=== PATIENT | male | born 1945 | race Caucasian/White ===

== ENCOUNTER 2016-10-01 16:37 | Observation (INO) | payer MEDICARE, OTHER ==
--- NOTE | ~2016-10-01 | EKG ---
PATIENT: LESLIE IRVIN UNIT #: [id number] Ventricular Rate: 53 BPM Atrial Rate: 53 BPM P-R Interval: 180 ms QRS Duration: 100 ms Q-T Interval: 424 ms QTC Calculation(Bezet): 397 ms P [place]: 36 degrees Calculated R [place]: -37 degrees Diagnosis Line: Sinus bradycardia Diagnosis Line: Left axis deviation Diagnosis Line: Abnormal ECG Diagnosis Line: No previous ECGs available Diagnosis Line: Confirmed by DELIA MADRID MD ([id number]) on 10/02/2016 Diagnosis Line: 11:09:47 PM INTERPRETING MD: MERCY CRAWFORD
--- NOTE | ~2016-10-01 | DS ---
Unit #: [id number] #: [id number] Patient: LESLIE IRVIN [id number] [address] [place], [place] [address] [id number] MR#: [id number] NAME: LESLIE IRVIN. ROOM: 576 Age: 71 Sex: M Admission Date: 10/01/2016 : 1945 Discharge Date: 10/03/2016 Attending Physician: Landon Hua M.D. Referring Physician: Landon Hua M.D. Primary Care Physician: Tremaine Acosta M.D. DISCHARGE SUMMARY DISCHARGE DIAGNOSES 1. Unstable angina. 2. Coronary artery disease, status post cardiac catheterization on 10/02/2016 at [facility] per Dr. Hua, which revealed left main normal. Proximal third of left anterior descending with mild calcification involving origin of the first diagonal branch. At the site of the origin of the first diagonal branch there was a 50% stenosis. At the first diagonal branch there was a 75% stenosis. Distal half of left anterior descending normal. First diagonal branch of left anterior descending normal. All septal perforators normal. Large anterior marginal branch of left circumflex have a long segment of stenosis with maximum severity of 95% to 99%. Distal vessel normal. Right coronary artery normal. Fractional flow reserve of mid left anterior descending 0.76, which was clinically significant. Status post percutaneous coronary intervention and drug-eluting stent in the marginal branch of the left circumflex and mid left anterior descending. Ejection fraction 60%. 3. Obstructive sleep apnea on CPAP. 4. Probable hypertension. 5. Nonsmoker. DISCHARGE MEDICATIONS 1. Lisinopril 20 mg p.o. at bedtime. 2. Brilinta 90 mg p.o. b.i.d. 3. Aspirin 81 mg p.o. daily. 4. Toprol XL 25 mg p.o. daily. 5. Atorvastatin 80 mg p.o. q.h.s. 6. Nitroglycerin 0.4 mg sublingual as needed for chest pain. HOSPITAL COURSE This is a 71-year-old white male, new to our group with a past medical history of obstructive sleep apnea on CPAP and a family history of coronary artery disease. The patient presented to the hospital with complaints of chest pain with radiation down both arms and shortness of breath. Initial EKG revealed T wave inversion in the inferior leads. Cardiac enzymes are negative. Chemistry was normal. Hemoglobin was mildly elevated 17.3. The patient was admitted in observation with the diagnosis of unstable angina. He was recommended for cardiac catheterization. He was placed on aspirin, therapeutic Lovenox and a full dose statin. Cardiac catheterization was completed on 10/02/[address] Hua. Please see details of coronary angiography as listed above. The patient Unit #: [id number] #: [id number] Patient: LESLIE IRVIN underwent FFR of the mid LAD, which as hemodynamically significant of 0.76. He underwent successful placement of a 5 x 20 mm Synergy drug-eluting stent in the mid LAD, reducing stenosis to 0%. He also underwent successful placement of a 3 x 28 mm Synergy drug-eluting stent in the marginal branch of the left circumflex, reducing stenosis to 0%. Ejection fraction was calculated at 60%. He tolerated the procedure well and was transferred to intermediate telemetry. Postoperatively he did well. Symmetry revealed sinus rhythm with stenosis and arrhythmias. Calf site is bruised but soft without hematoma. There are no reports of chest pain and no shortness of breath. He is ambulating without complaints and is stable for discharge home today. He has been started on dual antiplatelet therapy with aspirin and Brilinta. A co-pay card has been provided and the cost has been assessed with case management. The patient will be given samples from the office due to cost of $120 per month for Brilinta. He is on a high dose statin, NATHALIA inhibitor and beta-jameson, as well as nitroglycerin as needed. He has been recommended to follow up with cardiac rehab. He is in stable condition and will be discharged home. DIAGNOSTIC STUDIES LABORATORY STUDIES: White blood cell count 10.1, hemoglobin 17.3, hematocrit 50.4, platelets 263. Sodium 136, potassium 4.3, chloride 106, CO2 24, BUN 11, creatinine 0.9, glucose 109. Troponin 0.03 and 0.03. Angio CK 94, MB 13.3%, MB 14.1. Total cholesterol 157, triglycerides 103, LDL 89, HDL 47. INR 1.0. CARDIOVASCULAR STUDIES: Electrocardiogram reveals sinus bradycardia with left axis deviation. QTC 397 msec. PHYSICAL EXAMINATION Completed by Dr. Hua CONSTITUTIONAL: This is a 71-year-old white male in no acute distress. SKIN: Warm and dry. NECK: Supple. No jugular venous distention. No hepatojugular reflux. Normal carotid upstrokes auscultated. HEART: S1 and S2. Regular rate and rhythm. No murmurs, rubs or gallops. LUNGS: Bilateral breath sounds have good air entry throughout all lung michaels. Respirations even and unlabored. No rales, rhonchi or wheezes. ABDOMEN: Soft, nontender, nondistended. Positive bowel sounds auscultated x4 quadrants. No ascites noted. EXTREMITIES: Bilateral extremities have no pretibial pitting edema. DP and PT pulses 2+. Capillary refill after three seconds. DISCHARGE INSTRUCTIONS 1. The patient will be discharged home today. 2. Followup with primary care in one to two weeks. 3. Followup with Dr. Hua in the office as instructed. 4. Co-pay card provided for Brilinta. Cost of Brilinta assessed at $120 month. Office to provide additional one month of samples. 5. Cardiac rehab ordered. Dictated by... Thelma Gill APRN for Landon Hua M.D. Unit #: [id number] #: [id number] Patient: IRVINLESLIE BHATTI/doug TD: 10/04/2016 12:01 JOB #: [id number] DISCHARGE SUMMARY Page 1 of 1 X X DISCHARGE SUMMARY
--- NOTE | ~2016-10-01 | EKG ---
PATIENT: LESLIE IRVIN UNIT #: [id number] Ventricular Rate: 58 BPM Atrial Rate: 58 BPM P-R Interval: 166 ms QRS Duration: 98 ms Q-T Interval: 414 ms QTC Calculation(Bezet): 406 ms P [place]: 36 degrees Calculated R [place]: -23 degrees Calculated T [place]: 8 degrees Diagnosis Line: Sinus bradycardia Diagnosis Line: Otherwise normal ECG Diagnosis Line: When compared with ECG of 02-OCT-2016 11:03, Diagnosis Line: (unconfirmed) Diagnosis Line: No significant change was found Diagnosis Line: Confirmed by DELIA MADRID MD ([id number]) on 10/03/2016 Diagnosis Line: 7:20:51 PM INTERPRETING MD: MERCY CRAWFORD
--- NOTE | ~2016-10-01 | EKG ---
PATIENT: LESLIE IRVIN UNIT #: [id number] Ventricular Rate: 60 BPM Atrial Rate: 60 BPM P-R Interval: 166 ms QRS Duration: 94 ms Q-T Interval: 408 ms QTC Calculation(Bezet): 408 ms P [place]: 46 degrees Calculated R [place]: -45 degrees Calculated T [place]: -7 degrees Diagnosis Line: Normal sinus rhythm Diagnosis Line: Left anterior fascicular block Diagnosis Line: Abnormal ECG Diagnosis Line: When compared with ECG of 02-OCT-2016 06:05, Diagnosis Line: (unconfirmed) Diagnosis Line: No significant change was found Diagnosis Line: Confirmed by DELIA MADRID MD ([id number]) on 10/03/2016 Diagnosis Line: 7:06:30 PM INTERPRETING MD: MERCY CRAWFORD
[2016-10-01 17:47] LABS: HEMATOCRIT 50.1 % (38.0-50.0); HEMOGLOBIN 17.3 gm/dL (13.0-16.0); MEAN CELL VOLUME 92.3 FL (83-96); MEAN CORPUSCULAR HEMOGLOBIN 31.9 PG (28-34); MEAN CORPUSCULAR HGB CONC 34.6 g/dL (30-36); MEAN PLATELET VOLUME 7.5 FL (6.5-11.5); RED BLOOD COUNT 5.43 X10e (3.90-5.60); RED CELL DISTRIBUTION WIDTH 13.4 % (11.0-15.5); WHITE BLOOD COUNT 6.3 X10e3 (4.0-10.5)
[2016-10-01 18:09] LABS: BUN/CREATININE RATIO 10.9; CALCIUM SERUM 9.2 mg/dL (8.4-10.2); CREATININE SERUM 1.1 mg/dL (0.6-1.4); GLOM FILT RATE Estimated 67.7 mL/min (>60); POTASSIUM 4.6 mmol/L (3.5-5.1)
[2016-10-01] MEDS ORDERED: PROTONIX PO (19:19)
[2016-10-01] MEDS ORDERED: AXIRON30 MG/1.5 TOP (19:20)
[2016-10-02 06:01] LABS: HEMATOCRIT 49.7 % (38.0-50.0); HEMOGLOBIN 17.2 gm/dL (13.0-16.0); MEAN CELL VOLUME 92.3 FL (83-96); MEAN CORPUSCULAR HEMOGLOBIN 31.9 PG (28-34); MEAN CORPUSCULAR HGB CONC 34.5 g/dL (30-36); MEAN PLATELET VOLUME 8.3 FL (6.5-11.5); RED BLOOD COUNT 5.38 X10e (3.90-5.60); RED CELL DISTRIBUTION WIDTH 13.4 % (11.0-15.5); WHITE BLOOD COUNT 6.4 X10e3 (4.0-10.5)
[2016-10-02 06:40] LABS: CALCIUM SERUM 9.1 mg/dL (8.4-10.2); GLOM FILT RATE Estimated 75.9 mL/min (>60); POTASSIUM 4.7 mmol/L (3.5-5.1)
[2016-10-02 06:48] LABS: PARTIAL THROMBOPLASTIN TIME 33.6 SECONDS (23.5-31.3); PROTHROMBIN TIME (PATIENT) 11.3 SECONDS (10.0-11.7)
[2016-10-02 19:18] LABS: ANGIO %MB 10.7 % (0.0-4.0); ANGIO MB 7.3 ng/ml
[2016-10-03 02:44] LABS: HEMATOCRIT 50.4 % (38.0-50.0); HEMOGLOBIN 17.3 gm/dL (13.0-16.0); MEAN CORPUSCULAR HGB CONC 34.4 g/dL (30-36); MEAN PLATELET VOLUME 7.9 FL (6.5-11.5); RED BLOOD COUNT 5.42 X10e (3.90-5.60); RED CELL DISTRIBUTION WIDTH 13.4 % (11.0-15.5)
[2016-10-03 02:45] LABS: WHITE BLOOD COUNT 10.1 X10e3 (4.0-10.5)
[2016-10-03 03:19] LABS: BUN/CREATININE RATIO 12.22; CALCIUM SERUM 8.8 mg/dL (8.4-10.2); CREATININE SERUM 0.9 mg/dL (0.6-1.4); GLOM FILT RATE Estimated 86.2 mL/min (>60); POTASSIUM 4.3 mmol/L (3.5-5.1)
[2016-10-03 03:30] LABS: ANGIO %MB 14.1 % (0.0-4.0); ANGIO MB 13.3 ng/ml
[2016-10-03] MEDS ORDERED: LIPITOR80 MG PO (09:36)
[2016-10-03] MEDS ORDERED: LISINOPRIL20 MG PO (09:37)
[2016-10-03] MEDS ORDERED: TOPROL XL PO (09:38)
[2016-10-03] MEDS ORDERED: ASPIRIN81 MG PO (09:39)
[2016-10-03] MEDS ORDERED: BRILINTA90 MG PO (09:40)
[2016-10-03] MEDS ORDERED: NITROSTAT0.4 MG SL (09:41)
[2016-10-03] MEDS ORDERED: AXIRON30 MG/1.5 TOP (11:02)
== END 2016-10-03 12:13 | disposition home or self-care (01) ==
LOC: UNDOADMOB 16:37 → C5C 16:37 → UNDOADMOB 16:39 → C5C 16:39 → CCVL 10-02 08:00 → EDSTATUS 10-02 08:00 → C5C 10-03 12:13
PROVIDERS: Internal Medicine Cardiovascular Disease
DX: I25.110 Atherosclerotic heart disease of native coronary artery with unstable angina pectoris (principal); G47.33 Obstructive sleep apnea (adult) (pediatric); Z82.49 Family history of ischemic heart disease and other diseases of the circulatory system
CPT/HCPCS: 93458; 93571; C9600 ×2; 80048; 80061; 82550; 82553; 84484; 85027; 85347; 85610; 85730; 93005; 96372; 96374; 96375; 99152; 99153; C1725; C1769; C1874; C1887; C1894; G0378; J0153; J0461; J1644; J1650; J2250; J2270; J2405; J3010